=== PATIENT | female | born 1945 | race Caucasian/White ===

== ENCOUNTER → 2016-08-24 | Outpatient (CLI) | payer OTHER ==
[~2016-08-24] MED LIST: ACT35 PO; SYN75 PO
--- NOTE | 2016-08-26 08:33 | MAMMOGRAPHY REPORT ---
BILATERAL DIGITAL SCREENING MAMMOGRAM WITH CAD: 08/24/2016 CLINICAL HISTORY: Routine screening. Patient has no complaints. TECHNIQUE: Bilateral CC and MLO views were obtained. Current study was also evaluated with a Compute r Aided Detection (CAD) system. COMPARISON: Comparison is made to exams dated: 06/23/2015 mammogram, 06/10/2014 mammogram, 06/06/2013 m ammogram, 05/29/2012 mammogram, 04/30/2011 mammogram - [facility], and 02/29/2008. BREAST COMPOSITION: The tissue of both breasts is heterogeneously dense, which may obscure small mas ses. FINDINGS: The parenchymal pattern is unchanged. There are a few scattered stable benign-appearing r ound and punctate microcalcifications in the breasts. No developing mass, architectural distortion o r cluster of suspicious microcalcifications is seen in either breast. IMPRESSION: ACR BI-RADS CATEGORY 2: BENIGN There is no mammographic evidence of malignancy. A 1 year screening mammogram is recommended. The pa tient will receive written notification of the results. Approximately 10% of breast cancers are not detected with mammography. A negative mammographic report should not delay biopsy if a clinically suggestive mass is present. Astrid Garcia M.D. ay/:08/24/2016 12:36:19 Detective Sergeant: [place] PEACE(R)(M), [facility] letter sent: Normal 1/2 BI-RADS Code: ACR BI-RADS Category 2: Benign
== END | disposition home or self-care (01) ==
LOC: C.MAMM 11:23
PROVIDERS: ATTEND Internal Medicine
DX: Z12.31 Encounter for screening mammogram for malignant neoplasm of breast (principal)

== ENCOUNTER 2017-05-21 19:51 | Emergency (ER) | payer OTHER ==
[~2017-05-21] VITALS: Ht 165.1 cm; Wt 59.6 kg
[2017-05-21 19:54] VITALS: Ht 165.1 cm; Wt 59.6 kg
[2017-05-21 20:06] VITALS: O2SAT 98
[2017-05-21] MEDS ORDERED: ALUMINUM/MAGNESIUM SUSP 30 ML UDC PO STA (20:34)
[2017-05-21] MEDS ORDERED: FAMOTIDINE 20MG/5ML IV PUSH IV STA (20:34)
--- NOTE | 2017-05-21 20:34 | EMERGENCY ROOM VISIT NOTE ---
History Report prepared by Karina: Larry Aburto Under the Supervision of: Dr. Beena Altamirano D.O. First contact with patient: 20:01 Chief Complaint: CARDIAC ASSESSMENT Stated Complaint: ESPOHAGEAL PAIN/CONTRACTIONS History of Present Illness The patient is a 71 year old female who presents to the Emergency Room with complaints of constant chest pain beginning two days ago. The patient states that she woke up 2 days ago with a cramping center chest pain. She notes that the following day, her pain was not bad but began to act up again last night. She reports that she then began to experience chest tightness about two hours ago. The patient states that she feels as though her esophagus is armin. She notes that she believed that she had a fish oil capsule stuck in her esophagus because she has had the taste of fish oil in her mouth. Patient denies any other accompanying symptoms and there is no radiation of the pain. States pain is worse lying down. She reports that she had a craniotomy done two months ago for a meningioma but recovered without incident and is currently on clindamycin for a tooth infection. Patient states she has approximately 4 more days of antibiotics. The patient states that she also has a hx of an irregular T wave, but is not being monitored by a feltmaker and weigher. She notes that she has no history prior of GERD or IBS. She rates her pain as an 8/10 when her symptoms are strongest. She rates her current pain as a 4/10. Pt denies headache , change in vision, fevers, back pain, shortness of breath, nausea, vomiting, diarrhea, pain with urination, changes in her bowel movements, and melena or blood with a bowel movement. Source of History: patient Onset: two days ago Position: chest (center) Symptom Intensity: 8/10 when her symptoms are the strongest, currently 4/10 Quality: cramping, other (tightness, contractions) Timing: constant Associated Symptoms: No fevers, No headache, No SOB, No nausea, No vomiting , No back pain, No melena, No diarrhea, No urinary symptoms Note: The patient states that she had the taste of fish oil in her mouth. She denies any change in vision and changes in her bowel movements. Review of Systems See HPI for pertinent positives & negatives. A total of 10 systems reviewed and were otherwise negative. Past Medical & Surgical Medical Problems: (1) Brain tumor (2) Irregular heart rhythm (3) Tooth infection Surgical Problems: (1) H/O craniotomy Family History No pertinent family history stated. Social History Smoking Status: Never Smoker Marital Status: Housing Status: lives with family Occupation Status: employed Current/Historical Medications Scheduled Clindamycin Hcl (Cleocin), 300 MG PO TID Cyclosporine (Ophth) (Restasis), 1 DROP OPB BID Levothyroxine Sodium (Levothyroxine Sodium), 75 MCG PO DAILY Allergies Coded Allergies: Penicillins (Verified Allergy, Unknown, 04/18/09) Sulfa Drugs (Verified Allergy, Unknown, 04/18/09) Sulfamethoxazole (Verified Allergy, Unknown, 04/18/09) Trimethoprim (Verified Allergy, Unknown, 04/18/09) Physical Exam Vital Signs Date Time Temp Pulse Resp B/P (MAP) Pulse Ox O2 Delivery O2 Flow Rate FiO2 05/22/17 00:36 36.8 87 16 117/76 97 05/21/17 23:10 117/76 05/21/17 22:00 87 16 143/81 97 Room Air 05/21/17 21:24 95 20 176/89 98 Room Air 05/21/17 20:48 98 Room Air 05/21/17 20:46 92 05/21/17 20:06 96 18 120/71 98 Room Air 05/21/17 20:06 98 Room Air 05/21/17 19:54 36.8 93 20 179/97 97 Room Air Physical Exam GENERAL: alert, well appearing, well nourished, no distress, non-toxic, appears younger than stated age EYE EXAM: normal conjunctiva, PERRL and EOM's grossly intact OROPHARYNX: no exudate, no erythema, lips, buccal mucosa, and tongue normal and mucous membranes are moist NECK: supple, no nuchal rigidity, no adenopathy, non-tender LUNGS: Clear to auscultation. Normal chest wall mechanics, no wheezes/rhonchi/ rales HEART: no murmurs, S1 normal and S2 normal CHEST: No reproducible chest pain ABDOMEN: abdomen soft, non-tender, normo-active bowel sounds, no masses, no rebound or guarding. BACK: Back is symmetrical on inspection and there is no deformity, no midline tenderness, no CVA tenderness. SKIN: no rashes and no bruising UPPER EXTREMITIES: upper extremities are grossly normal. Full range of motion and normal pulses bilaterally. LOWER EXTREMITIES: No pitting edema. Full range of motion and normal pulses bilaterally. NEURO EXAM: Normal sensorium, cranial nerves II-XII grossly intact, normal speech, no gross weakness of arms, no gross weakness of legs. No ataxia, no facial droop, normal coordination, normal gait. Medical Decision & Procedures ER Provider Diagnostic Interpretation: Radiology results have been interpreted by the radiologist and reviewed by me. CHEST ONE VIEW PORTABLE FINDINGS: Cardiomediastinal and hilar silhouettes are within normal limits. Atherosclerosis of the aorta. No pneumothorax, pleural effusion, focal airspace consolidation or overt pulmonary edema. The bones of the chest appear grossly intact. IMPRESSION: No acute process. The above report was generated using voice recognition software. It may contain grammatical, syntax or spelling errors. Electronically signed by: Brendan Diego M.D. 05/21/2017 9:07 PM Laboratory Results 05/21/17 20:45 Red Blood Count 4.44, Mean Corpuscular Volume 91.9, Mean Corpuscular Hemoglobin 30.4, Mean Corpuscular Hemoglobin Concent 33.1, Mean Platelet Volume 10.0, Neutrophils (%) (Auto) 63.3, Lymphocytes (%) (Auto) 27.7, Monocytes (%) (Auto) 5.6, Eosinophils (%) (Auto) 2.5, Basophils (%) (Auto) 0.8, Neutrophils # (Auto) 4.54, Lymphocytes # (Auto) 1.99, Monocytes # (Auto) 0.40, Eosinophils # (Auto) 0.18, Basophils # (Auto) 0.06 05/21/17 20:45 Test 05/21/17 20:45 05/21/17 23:22 White Blood Count 7.18 K/uL (4.8-10.8) Red Blood Count 4.44 M/uL (4.2-5.4) Hemoglobin 13.5 g/dL (12.0-16.0) Hematocrit 40.8 % (37-47) Mean Corpuscular Volume 91.9 fL (80-100) Mean Corpuscular Hemoglobin 30.4 pg (25-34) Mean Corpuscular Hemoglobin Concent 33.1 g/dl (32-36) Platelet Count 310 K/uL (130-400) Mean Platelet Volume 10.0 fL (7.4-10.4) Neutrophils (%) (Auto) 63.3 % Lymphocytes (%) (Auto) 27.7 % Monocytes (%) (Auto) 5.6 % Eosinophils (%) (Auto) 2.5 % Basophils (%) (Auto) 0.8 % Neutrophils # (Auto) 4.54 K/uL (1.4-6.5) Lymphocytes # (Auto) 1.99 K/uL (1.2-3.4) Monocytes # (Auto) 0.40 K/uL (0.11-0.59) Eosinophils # (Auto) 0.18 K/uL (0-0.5) Basophils # (Auto) 0.06 K/uL (0-0.2) RDW Standard Deviation 48.9 fL (36.4-46.3) RDW Coefficient of Variation 14.4 % (11.5-14.5) Immature Granulocyte % (Auto) 0.1 % Immature Granulocyte # (Auto) 0.01 K/uL (0.00-0.02) Prothrombin Time 10.4 SECONDS (9.0-12.0) Prothromb Time International Ratio 1.0 (0.9-1.1) Anion Gap 7.0 mmol/L (3-11) Est Creatinine Clear Calc Drug Dose 70.3 ml/min Estimated GFR () 103.2 Estimated GFR (Non- 89.1 BUN/Creatinine Ratio 13.9 (10-20) Calcium Level 9.3 mg/dl (8.5-10.1) Magnesium Level 2.2 mg/dl (1.8-2.4) Total Bilirubin 0.3 mg/dl (0.2-1) Aspartate Amino Transf (AST/SGOT) 15 U/L (15-37) Alanine Aminotransferase (ALT/SGPT) 27 U/L (12-78) Alkaline Phosphatase 117 U/L (45-117) Total Protein 8.1 gm/dl (6.4-8.2) Albumin 3.7 gm/dl (3.4-5.0) Globulin 4.4 gm/dl (2.5-4.0) Albumin/Globulin Ratio 0.9 (0.9-2) Lipase 187 U/L (73-393) Thyroid Stimulating Hormone (TSH) 0.856 uIu/ml (0.300-4.500) Troponin I < 0.015 ng/ml (0-0.045) Laboratory results per my review. Medications Administered Medications (Trade) Dose Ordered Sig/Brit Route Start Time Stop Time Status Last Admin Dose Admin Pantoprazole Sodium 40 mg/ Syringe 10 ml @ 5 mls/min NOW ONCE IV 05/21/17 20:45 05/21/17 20:46 DC 05/21/17 20:45 5 MLS/MIN Famotidine (Pepcid 20mg Iv Push) 20 mg ONE STAT IV 05/21/17 20:34 05/21/17 20:36 DC 05/21/17 20:34 20 MG Al Hydroxide/Mg Hydroxide (Maalox Susp) 15 ml NOW STAT PO 05/21/17 20:34 05/21/17 20:36 DC 05/21/17 20:50 15 ML Potassium Chloride (Klor-Con M10) 40 meq NOW STAT PO 05/21/17 21:52 05/21/17 21:53 DC 05/21/17 21:59 40 MEQ Nifedipine (Procardia Cap) 10 mg NOW STAT SL 05/21/17 22:13 05/21/17 22:14 DC 05/21/17 22:23 10 MG ECG Per My Interpretation Indication: chest pain Rate (beats per minute): 93 Rhythm: sinus rhythm Findings: T-wave inversion (in v3, v4, and v5), no acute ischemic change, no ectopy, other (Normal axis, normal intervals) ED Course 2015: The patient was evaluated in room B8. A complete history and physical exam was performed. 2033: Maalox Susp 15mg PO, Famotidine 20mg IV 5: Pantoprazole Sodium 40mg/Syringe 10 ml @ 5 mls/min IV 2: Potassium Chloride 40 meq PO 8: I reevaluated and updated the patient. There is no change in the patient' s condition and she is still having the same level of pain. 3: Nifedipine 10mg SL 8: I rechecked the patient. Her repeat urine is negative. 0015: I reevaluated and updated the patient. She has no further issues and is asking to go home. 0036: Upon reevaluation, the patient is feeling better. I discussed the findings and the treatment plan with the patient. She verbalizes agreement and understanding. The patient was discharged home. Medical Decision Differential diagnosis: Etiologies such as cardiac ischemia, aortic dissection, pulmonary embolism, pneumonia, pneumothorax, musculoskeletal, infections, pericarditis, myocarditis , esophageal rupture, gastrointestinal, as well as others were entertained. Heart score 1 Patient well-appearing here with intermittent episodes of pain which were resolved with GI medications. Troponins negative 2. I do not suspect PE given the nature of pain and lack of other symptoms over the course of the last several days. Patient with no lower extremity swelling and low risk Wells. Patient was stable vital signs, no tachycardia, no hypoxia and no complaints of trouble breathing. Other labs and patient reassuring. Doubt occult infectious etiology. I do not suspect vascular etiology including aneurysm or dissection. Patient with equal pulses and blood pressures in bilateral extremities. Following GI medication administration, patient felt improved, was anxious to go home, tolerating p.o. at bedside without any recurrent symptoms. Discussed with her close follow-up with family doctor as if symptoms recur she may need additional cardiology or GI testing as a precaution. Discussed symptoms to watch and return for an close monitoring of her symptoms. Discussed avoidance of acidic food and initiation of an acid reducing medication as well as a probiotic while she is taking clindamycin. Patient verbalized understanding of her results, and of additional bedside discussion, all questions were answered at bedside, she was in agreement with plan and anxious to return home. Medication Reconcilliation Current Medication List: was personally reviewed by me Blood Pressure Screening Patient's blood pressure: Normal blood pressure Blood pressure disposition: Did not require urgent referral Impression Primary Impression: Chest pain Additional Impression: Hypokalemia Scribe Attestation The scribe's documentation has been prepared under my direction and personally reviewed by me in its entirety. I confirm that the note above accurately reflects all work, treatment, procedures, and medical decision making performed by me. Departure Information Dispostion Home / Self-Care Referrals Kaitlynn Lawson M.D. (PCP) Forms IMPORTANT VISIT INFORMATION Patient Instructions My [facility] Additional Instructions Please avoid any acidic foods as this could contribute to reflux. Please consider starting an [id number] acid reducing medication. Please call follow-up with your family doctor as a precaution to recheck your symptoms. If you have persistent chest pain, they may advise follow-up with cardiology or a GI doctor as a precaution. Please avoid acidic foods including alcohol, coffee , soda, tomato based products, and citrus fruits. Please consider taking a probiotic while you are on the antibiotic. Please have your family doctor recheck your potassium level next week. If you have any recurrent episodes of pain, develop trouble breathing, fevers, vomiting, black or bloody stools, dizziness, you have any other new concerns, please return the emergency room. Problem Qualifiers Primary Impression: Chest pain Chest pain type: unspecified Qualified Codes: R07.9 - Chest pain, unspecified
[2017-05-21] MEDS ORDERED: LEVO75TA5 PO (20:35)
[2017-05-21] MEDS ORDERED: CYCL0.052 OPB (20:35)
[2017-05-21] MEDS ORDERED: CLIN300C2 PO (20:35)
[2017-05-21] MEDS ORDERED: PANTOprazole INJ 40 MG in SYRINGE 0 ML IV ONE (20:45)
--- NOTE | 2017-05-21 21:08 | DIAGNOSTIC IMAGING REPORT ---
CHEST ONE VIEW PORTABLE HISTORY: 71 years-old Female chest pain acute atypical chest pain COMPARISON: None available TECHNIQUE: Portable AP view of the chest FINDINGS: Cardiomediastinal and hilar silhouettes are within normal limits. Atherosclerosis of the aorta. No pneumothorax, pleural effusion, focal airspace consolidation or overt pulmonary edema. The bones of the chest appear grossly intact. IMPRESSION: No acute process. The above report was generated using voice recognition software. It may contain grammatical, syntax or spelling errors. Electronically signed by: Brendan Diego M.D. 05/21/2017 9:07 PM Dictated Date/Time: 05/21/2017 9:05 PM
[2017-05-21 21:17] LABS: BASO % 0.8 %; BASO ABS # 0.06 K/uL (0-0.2); EOS % 2.5 %; EOS ABS # 0.18 K/uL (0-0.5); HEMATOCRIT 40.8 % (37-47); HEMOGLOBIN 13.5 g/dL (12.0-16.0); IG# 0.01 K/uL (0.00-0.02); LYMPH % 27.7 %; LYMPH ABS # 1.99 K/uL (1.2-3.4); MEAN CELL VOLUME 91.9 fL (80-100); MEAN CORPUSCULAR HEMOGLOBIN 30.4 pg (25-34); MEAN CORPUSCULAR HGB CONC 33.1 g/dl (32-36); MONO % 5.6 %; NEUT % 63.3 %; NEUT ABS # 4.54 K/uL (1.4-6.5); PLATELET COUNT 310 K/uL (130-400); RED CELL DISTRIBUTION WIDTH CV 14.4 % (11.5-14.5); RED CELL DISTRIBUTION WIDTH SD 48.9 fL (36.4-46.3); WHITE BLOOD COUNT 7.18 K/uL (4.8-10.8)
[2017-05-21 21:29] LABS: ALBUMIN 3.7 gm/dl (3.4-5.0); ALT/SGPT 27 U/L (12-78); BLOOD UREA NITROGEN 9 mg/dl (7-18); CALCIUM 9.3 mg/dl (8.5-10.1); CARBON DIOXIDE 27 mmol/L (21-32); CREATININE 0.67 mg/dl (0.60-1.20); GLUCOSE 120 mg/dl (70-99); LIPASE 187 U/L (73-393); POTASSIUM 3.1 mmol/L (3.5-5.1); SODIUM 138 mmol/L (136-145)
[2017-05-21 21:40] LABS: ALKALINE PHOSPHATASE 117 U/L (45-117); AST/SGOT 15 U/L (15-37); TOTAL PROTEIN 8.1 gm/dl (6.4-8.2)
[2017-05-21] MEDS ORDERED: POTASSIUM CHLORIDE 10 MEQ TABCR PO STA (21:52)
[2017-05-21] MEDS ORDERED: NIFEdipine 10 MG CAP SL STA (22:13)
[2017-05-22 00:36] VITALS: BP 117/76; PULSE 87; TEMP 36.8; O2SAT 97
== END 2017-05-22 00:37 | disposition home or self-care (01) ==
LOC: C.EDB 19:52
DX: R07.9 Chest pain, unspecified (principal); E87.6 Hypokalemia; Z86.011 Personal history of benign neoplasm of the brain; Z86.19 Personal history of other infectious and parasitic diseases; Z88.0 Allergy status to penicillin; Z88.2 Allergy status to sulfonamides; Z88.1 Allergy status to other antibiotic agents